=== PATIENT | female | born 1970 | race Caucasian/White ===

== ENCOUNTER 2022-10-01 09:19 | Inpatient (IN) | payer BC ==
[~2022-10-01 09:19] MED LIST: Iopamidol 370 76% 100 ML VIAL ONE
[2022-10-01 09:54] LABS: #Basophils 0.1 10x3/uL (0.0-0.2); #Eosinphils 0.2 10x3/uL (0.0-0.5); #Monocytes 0.6 10x3/uL (0.0-1.1); #Neutrophils 3.9 10x3/uL (1.5-8.4); %Basophils 0.8 % (0.0-2.0); %Eosinophils 2.7 % (0.0-6.0); %Monocytes 9.7 % (0.0-10.0); %Neutrophils 61.5 % (40.0-75.0); Hemoglobin 13.6 g/dL (12.0-15.5); Mean Corpuscular HGB CONC 35.7 g/dL (32.0-36.0); Mean Corpuscular Hemoglobin 32.8 pg (27.0-33.0); Mean Corpuscular Volume 91.8 fl (81.6-98.3); Mean Platelet Volume 9.9 fl (7.4-10.4); Platelet Count 351 10x3/uL (150-450); RBC Distribution Width 11.9 % (11.5-14.5); Red Blood Cell (RBC) Count 4.15 10x6/uL (3.90-5.03); White Blood Cell (WBC) Count 6.4 10x3/uL (3.5-10.5)
[2022-10-01 10:02] LABS: INR-International Normal Ratio 0.9; PTT 23.7 sec (22.0-33.0); Prothrombin Time 10.1 sec (9.5-12.1)
[2022-10-01 10:07] LABS: Acetaminophen Less than 10.0 mcg/mL (10.0-30.0); Alcohol Less than 10 mg/dL (Less than 10); CK (CPK) 128 U/L (29-168); Salicylate Less than 8.0 mg/dL (15.0-30.0)
[2022-10-01 10:07] LABS: ALT (SGPT) 17 U/L (8-55); AST (SGOT) 17 U/L (5-34); Albumin 4.3 g/dL (3.5-5.0); Alkaline Phosphatase 48 U/L (40-110); Anion Gap 14 mmol/L (10-20); BUN (Urea Nitrogen) 13 mg/dL (9.8-20.1); Bilirubin, Total 0.3 mg/dL (0.2-1.2); Calc. Creatinine Clearance 0 mL/min (70-130); Calcium 9.6 mg/dL (7.8-10.44); Carbon Dioxide 27 mmol/L (22-29); Chloride 100 mmol/L (98-107); Estimated GFR 93; Globulin 2.7 g/dL (2.4-3.5); Glucose 96 mg/dL (70-105); Potassium 4.3 mmol/L (3.5-5.1); Sodium 137 mmol/L (136-145)
[2022-10-01 11:25] LABS: Amphetamine Not Detected (NotDetected); Barbiturates Screen Not Detected (NotDetected); Benzodiazepine Screen Not Detected (NotDetected); Cocaine Metabolite Screen Not Detected (NotDetected); Methadone Not Detected (NotDetected); Methamphetamine Not Detected (NotDetected); Opiate Screen Not Detected (NotDetected); Oxycodone Screen Not Detected (NotDetected); Phencyclidine (PCP) Not Detected (NotDetected); THC/Cannabinoid Screen Not Detected (NotDetected); Tricyclic Screen Not Detected (NotDetected)
[2022-10-01] MEDS ORDERED: Communication Order-Pharmacy FS PRN (11:25)
[2022-10-01 11:49] LABS: Bilirubin Neg (Negative); Blood, Urine Negative (Negative); Clarity Clear (Clear); Glucose, Urine (Dipstick) Normal (Negative); Ketone, Urine Negative (Negative); Leukocyte Negative (Negative); Nitrite Negative (Negative); Protein, Urine (Dipstick) Negative (Neg-Trace); Specific Gravity, Urine 1.005 (1.005-1.030); Urobilinogen Normal mg/dL (Less than 2)
[2022-10-01 12:24] LABS: SARS-CoV-2 NAA Rapid Test Not Detected (NotDetected)
[2022-10-01] MEDS ORDERED: Dextrose 50% Abboject 50 ML SYRINGE SLOW IVP PRN (12:36)
[2022-10-01] MEDS ORDERED: Dextrose 5% in Water 1,000 ML IV PRN (12:36)
[2022-10-01] MEDS ORDERED: HumaLOG 300 UNITS/3 ML VIAL SC PRN ×2 (12:36)
[2022-10-01] MEDS ORDERED: hydrALAZINE 20 MG/ML VIAL SLOW IVP PRN (12:36)
[2022-10-01] MEDS ORDERED: Labetalol HCl 100 MG/20 ML VIAL SLOW IVP PRN (12:36)
[2022-10-01] MEDS ORDERED: niCARdipine 25 MG in Sodium Chloride 0.9% 250 ML 250 ML IVPB PRN (12:36)
[2022-10-01] MEDS ORDERED: Ondansetron PF 4 MG/2 ML Vial IVP PRN (12:36)
[2022-10-01] MEDS ORDERED: Ondansetron ODT 4 MG TAB PO PRN (12:36)
[2022-10-01 14:03] LABS: Troponin I Less than 0.010 ng/mL (< 0.028)
[2022-10-01 14:36] LABS: Glucose 81 mg/dL (70-105)
[2022-10-01] MEDS: Acetaminophen 325 MG TAB PO PRN ×2 (15:10→20:56)
[2022-10-01] MEDS: clonazePAM 1 MG TAB PO SCH ×2 (15:10→20:56)
[2022-10-01] MEDS: HYDROcodone/Acetaminophen 5/325 mg Tablet PO PRN ×2 (18:31→22:38)
[2022-10-01 18:39] LABS: Troponin I Less than 0.010 ng/mL (< 0.028)
[2022-10-01] MEDS: Atorvastatin Calcium 40 MG TAB PO SCH (20:56)
[2022-10-01] MEDS: Famotidine 20 MG TAB PO SCH (20:56)
[2022-10-02] MEDS: HYDROcodone/Acetaminophen 5/325 mg Tablet PO PRN ×3 (03:31→12:51)
[2022-10-02] MEDS: Famotidine 20 MG TAB PO SCH ×2 (08:40→20:47)
[2022-10-02] MEDS: clonazePAM 1 MG TAB PO SCH ×3 (08:40→20:48)
[2022-10-02] MEDS: diphenhydrAMINE 50 MG/ML VIAL IVP SCH ×2 (15:23→20:48)
[2022-10-02] MEDS: Prochlorperazine 10 MG/2 ML VIAL IVP SCH ×2 (15:25→20:48)
[2022-10-02] MEDS: Atorvastatin Calcium 40 MG TAB PO SCH (20:48)
[2022-10-03] MEDS: Prochlorperazine 10 MG/2 ML VIAL IVP SCH ×2 (03:47→09:53)
[2022-10-03] MEDS: diphenhydrAMINE 50 MG/ML VIAL IVP SCH ×2 (03:47→09:53)
[2022-10-03 04:00] VITALS: BMI 29.0
[2022-10-03 04:36] LABS: Cardiac Risk 2.9 (Less than 4.5)
[2022-10-03] MEDS: clonazePAM 1 MG TAB PO SCH ×2 (07:51→14:55)
[2022-10-03] MEDS: Famotidine 20 MG TAB PO SCH (07:51)
[2022-10-03] MEDS ORDERED: Bisoprolol Fumarate 5 MG TAB PO SCH (09:00)
[2022-10-03] MEDS ORDERED: HCTZ PO SCH (09:00)
[2022-10-03] MEDS ORDERED: BISOPROLOL FUMARATE PO SCH (09:00)
[2022-10-03] MEDS ORDERED: Hydrochlorothiazide 25 MG TAB PO SCH (09:00)
[2022-10-03 11:49] VITALS: TEMP 98.4
[2022-10-03 15:33] VITALS: BP 132/78
== END 2022-10-03 18:40 | disposition home or self-care (01) | DRG 103 ==
LOC: CSHERS 09:19 → CSHIMCU 13:33
PROVIDERS: ADMIT Internal Medicine; ATTEND Internal Medicine
DX: G43.909 Migraine, unspecified, not intractable, without status migrainosus (principal); R55 Syncope and collapse; I10 Essential (primary) hypertension; E11.9 Type 2 diabetes mellitus without complications; R29.810 Facial weakness; R53.1 Weakness; Z20.822 Contact with and (suspected) exposure to COVID-19; E78.00 Pure hypercholesterolemia, unspecified; Z90.710 Acquired absence of both cervix and uterus; Z98.890 Other specified postprocedural states; Z90.49 Acquired absence of other specified parts of digestive tract; Z82.49 Family history of ischemic heart disease and other diseases of the circulatory system; Z88.8 Allergy status to other drugs, medicaments and biological substances; Z88.5 Allergy status to narcotic agent; Z88.1 Allergy status to other antibiotic agents; Z79.899 Other long term (current) drug therapy; Z83.3 Family history of diabetes mellitus; Z80.9 Family history of malignant neoplasm, unspecified
CPT/HCPCS: 0042T; 36415; 36416; 51702; 70450; 70551; 71045; 80053; 80061; 80306; 80307; 81003; 82550; 83605; 84443; 84484; 85025; 85610; 85730; 93005; 93306; 94760; 95816; 95819; 95957; 96374; J0780; J1200; Q9967